=== PATIENT | male | born 1985 | race Caucasian/White ===

== ENCOUNTER 2022-08-16 17:49 | Emergency (ER) | payer MEDICAID ==
[~2022-08-16] VITALS: Ht 157.5 cm; Wt 80.7 kg
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
[2022-08-16] MEDS ORDERED: ACETAMINOPHEN 325 MG TABLET PO ONE (18:30)
[2022-08-16] MEDS ORDERED: ACETAMINOPHEN 325 MG TABLET ONE (18:32)
--- NOTE | 2022-08-16 18:56 | NUR ---
PAtient transported out for imaging testing
--- NOTE | 2022-08-16 19:37 | NUR ---
PATIENT BACK FROM IMAGING
--- NOTE | 2022-08-16 19:40 | NUR ---
RECIEVED PATIENT BACK FROM IMAGING. C/O LEG AND HIP PAIN. PRIMARILY BHUTANESE SPEAKING
[2022-08-16] MEDS ORDERED: TYL2T PO (20:44)
[2022-08-16] MEDS ORDERED: NAPR-1164 PO (20:44)
[2022-08-16] MEDS ORDERED: KETOROLAC TROMETHAMINE INJ 60 MG/2 ML VIAL IM ONE (21:00)
[2022-08-16] MEDS ORDERED: KETOROLAC TROMETHAMINE INJ 30 MG/ML VIAL ONE (21:20)
--- NOTE | 2022-08-16 21:36 | NUR ---
Patient discharged to home in stable condition. Written and verbal after care instructions given. Patient verbalizes understanding of instruction. Pt ambulatory with a steady gait
[2022-08-16 21:37] VITALS: BP 144/86
== END 2022-08-16 21:40 | disposition home or self-care (01) ==
LOC: ER 17:52
DX: M25.552 Pain in left hip (principal); M54.6 Pain in thoracic spine; M54.50 Low back pain, unspecified; M79.605 Pain in left leg; Z60.2 Problems related to living alone; V23.49XA Other motorcycle driver injured in collision with car, pick-up truck or van in traffic accident, initial encounter; Y93.89 Activity, other specified; Y92.89 Other specified places as the place of occurrence of the external cause; Y99.8 Other external cause status
CPT/HCPCS: 99285; 72131; 96372; 73610; 73552; 73630; 73590; 72128; J1885; 73502